=== PATIENT | male | born 1940 | race Caucasian/White ===

== ENCOUNTER 2024-12-08 08:47 | Emergency (ER) | payer MEDICARE, MEDICAID ==
[~2024-12-08] VITALS: Ht 134.6 cm; Wt 69.0 kg
[2024-12-08 09:04] VITALS: O2SAT 98
[2024-12-08] MEDS ORDERED: CEPH500C2 MT (11:35)
[2024-12-08] MEDS ORDERED: IBUP-2029 MT (11:35)
[2024-12-08 12:17] VITALS: BP 147/87; PULSE 87; RESP 17; TEMP 36.8; O2SAT 97
== END 2024-12-08 12:20 | disposition home or self-care (01) ==
LOC: ER 08:47
DX: L03.116 Cellulitis of left lower limb (principal); J45.909 Unspecified asthma, uncomplicated; E11.9 Type 2 diabetes mellitus without complications; Z98.890 Other specified postprocedural states
CPT/HCPCS: 82962; 99283